=== PATIENT | female | born 1975 | race American Indian/Alaskan Native ===

== ENCOUNTER 2017-11-18 21:47 | Emergency (ER) | payer BC ==
[2017-11-18 21:47] VITALS: BMI 30.7
[2017-11-18 22:01] VITALS: BP 144/87; PULSE 78; RESP 20; TEMP 98.6; O2SAT 99
[2017-11-18] MEDS ORDERED: DiphenhydrAMINE 50 mg/ml Inj IM STA (22:59)
--- NOTE | 2017-11-18 23:19 | C.PDOC ---
History Of Present Illness 42 year old female presents to the ER with a complaint of sudden onset of generalized itching that began today. Denies known allergens, new medications, chest tightness, oral lesions, or fever. Time Seen by Provider: 11/18/17 22:32 Chief Complaint (Nursing): Abnormal Skin Integrity History Per: Patient History/Exam Limitations: no limitations Onset/Duration Of Symptoms: Hrs Current Symptoms Are (Timing): Still Present Quality Of Symptoms: Itching Recent travel outside of the [place]: No Past Medical History Reviewed: Historical Data, Nursing Documentation, Vital Signs Vital Signs: Last Vital Signs Temp 98.6 F 11/18/17 22:00 Pulse 78 11/18/17 22:00 Resp 20 11/18/17 22:00 BP 144/87 11/18/17 22:00 Pulse Ox 99 11/19/17 01:10 - Medical History PMH: Bronchitis Family History: States: Unknown Family Hx - Social History Hx Tobacco Use: Yes Hx Alcohol Use: No Hx Substance Use: No - Immunization History Hx Tetanus Toxoid Vaccination: Yes Hx Influenza Vaccination: No Hx Pneumococcal Vaccination: No Review Of Systems Constitutional: Negative for: Fever ENT: Negative for: Other (Oral lesions) Respiratory: Negative for: Other (Chest tightness) Skin: Positive for: Rash Physical Exam - Physical Exam Appears: Non-toxic Skin: Warm, Dry, Rash (Scattered urticaria) Head: Atraumatic, Normacephalic Eye(s): bilateral: Normal Inspection Nose: Normal Oral Mucosa: Moist Tongue: Normal Appearing, No Swelling Lips: Normal Appearing, No Swelling Throat: Normal, No Other (Swelling) Neck: Normal, Supple, No Other (Swelling) Chest: Symmetrical, No Tenderness Cardiovascular: Rhythm Regular Respiratory: Normal Breath Sounds, No Accessory Muscle Use, No Stridor, No Wheezing Gastrointestinal/Abdominal: Soft, No Tenderness Neurological/Psych: Oriented x3, Normal Speech ED Course And Treatment O2 Sat by Pulse Oximetry: 99 (Room air) Pulse Ox Interpretation: Normal Progress Note: Benadryl and prednisone administered. Patient reports improvement of rash, she is resting comfortably in no acute respiratory distress , vitals are stable, will discharge home with Rx and instructions to follow up with PMD or return if symptoms worsen. Disposition Counseled Patient/Family Regarding: Diagnosis, Need For Followup, Rx Given - Disposition Referrals: [facility] [Outside] Disposition: HOME/ ROUTINE Disposition Time: 23:16 Condition: STABLE Additional Instructions: Take medications as directed Take zyrtec during the day/ May take benadryl at night or when staying home Follow up with PMD Return to ER if difficulty breathing, Lip swelling or worse Prescriptions: Cetirizine HCl [Zyrtec] 10 mg PO DAILY #10 capsule DiphenhydrAMINE [Benadryl] 50 mg PO Q6H #20 cap predniSONE [Prednisone] 40 mg PO DAILY #8 tab Instructions: Hives (DC) Forms: [employer] (Maltese), Work Excuse - Clinical Impression Clinical Impression: Allergic urticaria - PA / GUITAR [employer] / Resident Statement MD/DO has reviewed & agrees with the documentation as recorded. - Scribe Statement The provider has reviewed the documentation as recorded by the Scribcarolyne Amaro All medical record entries made by the Deboibcarolyne were at my direction and personally dictated by me. I have reviewed the chart and agree that the record accurately reflects my personal performance of the history, physical exam, medical decision making, and the department course for this patient. I have also personally directed, reviewed, and agree with the discharge instructions and disposition.
== END 2017-11-18 23:28 | disposition home or self-care (01) ==
LOC: C.ER 21:47
DX: L50.0 Allergic urticaria (principal)